=== PATIENT | male | born 1990 | race American Indian/Alaskan Native ===

== ENCOUNTER 2019-06-23 20:37 | Emergency (ER) | payer OTHER ==
[2019-06-23 20:52] VITALS: BP 109/46
[2019-06-23] MEDS ORDERED: IBUPROFEN 600 MG TAB PO ONE (21:40)
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
== END 2019-06-23 23:18 | disposition home or self-care (01) ==
LOC: ED 20:37
DX: M79.18 Myalgia, other site (principal); V49.59XA Passenger injured in collision with other motor vehicles in traffic accident, initial encounter; Y93.89 Activity, other specified; Y92.488 Other paved roadways as the place of occurrence of the external cause; Y99.8 Other external cause status